=== PATIENT | male | born 1980 | race Two or more races ===

== ENCOUNTER 2023-06-05 18:41 | Emergency (ER) | payer OTHER ==
[~2023-06-05] VITALS: Ht 167.6 cm; Wt 68.0 kg
[2023-06-05] MEDS ORDERED: AVAPRO75 MG PO (19:15)
[2023-06-05] MEDS ORDERED: FAMOTIDINE/PF 20 MG/2 ML VIAL IV ONE (20:30)
[2023-06-05] MEDS ORDERED: KETOROLAC TROMETHAMINE 60 MG VIAL IM ONE (20:30)
[2023-06-05 21:14] LABS: URINE APPEARANCE Clear; URINE BILIRRUBIN Negative (NEGATIVE); URINE BLOOD Negative; URINE COLOR Yellow; URINE LEUKOCYTE Negative; URINE NITRATE Negative; URINE PROTEIN Negative (NEGATIVE); URINE UROBILINOGEN 0.2 E.U./dl
[2023-06-05 21:18] LABS: URINE BACTERIA 12.5 uL (0.0-1933); URINE EPITHELIAL CELLS 4.1 uL (0.0-38.8); URINE WBC 3.2 uL (0.0-23.2)
[2023-06-05 21:25] LABS: URINE GLUCOSE >=1000 MG/DL (NEGATIVE); URINE RBC 0.7 uL (0.0-20.8)
[2023-06-05] MEDS ORDERED: DICLOFENAC SODI75 MG PO (22:17)
== END 2023-06-05 22:20 | disposition home or self-care (01) ==
LOC: ER 18:41
PROVIDERS: Nurse Practitioner Family
DX: M79.622 Pain in left upper arm (principal); I10 Essential (primary) hypertension; R73.9 Hyperglycemia, unspecified